=== PATIENT | female | born 1945 | race Caucasian/White ===

== ENCOUNTER 2018-02-05 09:05 | Inpatient (IN) | payer MEDICARE, OTHER, SELFPAY ==
[2018-01-21 09:44] VITALS: BMI 33.5
[2018-02-05] VITALS (14 sets, daily range): BP systolic 117–160; BP diastolic 63–90; PULSE 77–105; RESP 10–19; TEMP 35.8–37.1; O2SAT 18–99; BMI 33.5
--- NOTE | 2018-02-05 | DI.RAD.S_ITS ---
PROCEDURE: XR PELVIS 1-2V INDICATIONS: 72 year-old female with right hip replacement. TECHNIQUE: Intra-operative view of the pelvis and hip acquired. COMPARISON: [facility] [place], CR, XR PELVIS WITH LATERAL HIP RIGHT, 12/16/2017, 11:39. [facility], CR, XR PELVIS WITH LATERAL HIP RIGHT, 09/02/2017, 12:08. FINDINGS: Bones: Intraoperative devices prior to placement of arthroplasty prostheses are in expected positions. No fractures or suspicious bony lesions. Soft tissues: Overlying surgical retractors are present, along with other intraoperative changes. IMPRESSION: Right hip arthroplasty spacer devices are in expected positions intra-operatively. Dictated by: Torrey Gomez M.D. on 02/05/2018 at 13:49 Approved by: Torrey Gomez M.D. on 02/05/2018 at 13:49
--- NOTE | 2018-02-05 | DI.RAD.S_ITS ---
PROCEDURE: XR HIP W PEL IF DONE RT 2V INDICATIONS: 72 year-old female with right hip replacement. TECHNIQUE: AP pelvis and lateral view of the right hip acquired. COMPARISON: [facility], CR, XR PELVIS 1-2V, 02/05/2018, 12:32. [facility], CR, XR PELVIS WITH LATERAL HIP RIGHT, 12/16/2017, 11:39. [facility], CR, XR PELVIS WITH LATERAL HIP RIGHT, 09/02/2017, 12:08. FINDINGS: Bones: Patient is status post noncemented right hip arthroplasty, with hardware components in expected positions. The hip joint appears congruent. The visualized bony structures appear intact. Soft tissues: Overlying postoperative changes are noted, including soft tissue gas and surgical drain. No suspicious soft tissue densities. IMPRESSION: Status post right hip arthroplasty, with hardware components in expected positions. Dictated by: Torrey Gomez M.D. on 02/05/2018 at 14:11 Approved by: Torrey Gomez M.D. on 02/05/2018 at 14:14
[2018-02-05] MEDS: VANCOMYCIN 1,000 MG/200 ML FROZ.PIGGY 200 MG IV (10:15)
[2018-02-05] MEDS: LACTATED RINGERS 1,000 ML 42 ML IV ×2 (10:15→12:18)
--- NOTE | 2018-02-05 11:03 | PM.PREOP ---
Pre-operative Note Interval Note Pre-op Check: History & Physical Reviewed by Physician
[2018-02-05] MEDS: CEFAZOLIN 2 GM/100 ML FROZ.PIGGY IV ×2 (11:17→19:37)
--- NOTE | 2018-02-05 11:22 | P.OP_ITS ---
Operative Date/Time/Diagnoses - Date of procedure: 02/05/18 Time of procedure: 11:14 Post-op diagnosis: same Procedure & Clinicians Procedure: right total hip Same procedure as scheduled: Yes Indications: The patient has had progressively worsening right hip pain with radiographic changes consistent with arthritis. Non-operative management has failed and the patient has requested total hip replacement. The risks, benefits and alternatives to surgery were discussed with the patient prior to proceeding. Risks discussed included, but were not limited to, failure to relieve pain, leg length discrepancy, dislocation, stiffness, infection, nerve damage, deep venous thrombosis, pulmonary embolism, stroke, coma, heart attack, permanent paralysis and , as well as the potential need for eventual revision of the prosthetic. Surgeon: Dolores Patrick Water/Wastewater Project Manager: Vishnu Ramirez Anesthesia Type: General and Spinal Operative Notes Findings: Severe right hip OA Closure Type: primary Specimen(s): none sent Implants & Drains: [employer] Nephew R3 54, anthology 6 standard offset, +0, Applied: drain(s) Estimated Blood Loss (mL): 200 Blood products transfused: none Procedure in detail: The patient was seen in the pre-operative area, where the patient identified the right hip as the operative site and this was marked with my initials. The patient received pre-operative antibiotics and was taken to the operating room and placed on the operative table in the left lateral decubitus position after satisfactory anesthesia. A motion and time study teacher out was performed. The right leg was prepared from the ankle to the iliac crest with ChloroPrep in the usual fashion and draped through sterile drapes. The hip was approached through an approximately 22 cm incision centered over the greater trochanter and curving gently posteriorly as it went proximally. This was carried sharply to the fascia demetrius, which was divided and retracted with a self retaining retractor. The trochanteric bursa was excised with care being taken to avoid the sciatic nerve, which was identified and protected throughout the case. The short external rotators were incised and the capsulomuscular flap was raised and tagged for later repair. The hip was dislocated, and a femoral neck osteotomy performed approximately 15 mm above the lesser trochanter. Retractors were placed to expose the acetabulum. The labrum and central soft tissues were removed, as was the anterior capsule. Reaming was performed initially going up in 2 mm increments, then 1 mm increments until good bite was obtained with an odd sized reamer. The cup 1 mm larger than the last reamer was then inserted using the appropriate anteversion guides. A trial neutral liner was placed. We then turned our attention to the femur. The canal was opened with a box cutting osteotome, followed by a canal finding reamer and a lateralizing reamer. Next sequential broaching was performed. A trial head and neck were then placed and the hip relocated and checked for leg length and stability. The patient was stable in the position of sleep, of squatting, and could be put through a range of motion with 45 degrees internal rotation without dislocation. At 90 degrees flexion, internal rotation to 70 was possible before dislocation. This was felt to be satisfactory and the appropriate components were opened, and the trials were removed. The acetabular liner was impacted into position. The final stem was then impacted into the prepared femoral canal. Finally the femoral head was impacted onto the stem. The acetabulum was cleared of all material and the hip relocated one final time. Radiographs were obtained intra-operatively confirming the position of all components and confirming that there were no iatrogenic fractures. The capsulomuscular flap was then repaired to the greater trochanter though an awl hole using the tag sutures. The short external rotators were repaired with black braided nylon. A deep drain was placed and brought out anteriorly. The fascia demetrius was closed with running and interrupted 0 Vicryl. A subcutaneous drain was also placed. The subcutaneous layer was closed with interrupted 3-0 Vicryl, and the skin with a hi stitches and surgical glue. An Aquacel Ag dressing was applied and the patient was taken to recovery having tolerated the procedure well. Complications: none Condition: stable Disposition: Acute Care Plan for aftercare: The patient will be maintained on a standard total hip replacement protocol with weight bearing as tolerated and posterior hip precautions. The patient will receive Aspirin and sequential compression devices for DVT prophylaxis. The patient will be discharged home when safe for the home environment.
--- NOTE | 2018-02-05 11:58 | SUR.OPER ---
Lateral on padded OR bed. Gel axillary roll. Arms secured on padded armboard with pillow supporting top arm. Padded hip positioner braces x4 - anterior and posterior chest and pelvis. Additional gel pad used anterior pelvis. Gel pad under bottom leg from knee to foot and secured with tape over sheet.
[2018-02-05] MEDS: BUPIVACAINE LIPOSOME 266 MG/20 ML VIAL SUBCUT (11:59)
[2018-02-05] MEDS: BUPIVACAINE 0.25% W/ EPI 50 ML VIAL INJ (12:01)
[2018-02-05] MEDS: EPINEPHRINE IRR (12:02)
[2018-02-05] MEDS: SODIUM CHLORIDE IRR (12:02)
[2018-02-05] MEDS: OXYCODONE IR 5 MG TABLET PO ×2 (16:00→16:49)
[2018-02-05] MEDS: LACTATED RINGERS 1,000 ML 100 ML IV (16:36)
--- NOTE | 2018-02-05 18:26 | PT.IIE ---
Current Diagnoses Unilateral primary osteoarthritis, right hip (02/05/18) Pain in right hip (02/05/18) Surgery Performed Operation Date: 02/05/18 10:45 Actual Procedures p Total Hip Arthroplasty(Right) - Dolores Patrick MD Surgical History (Last Reviewed 02/05/18 @ 18:08 by Kailee Chopra, PT) S/P CABG x 3 (Acute) S/P lateral meniscus repair of left knee (Acute) S/P lateral meniscus repair of right knee (Acute) Medical History (Last Reviewed 02/05/18 @ 18:08 by Kailee Chopra, PT) Breast cancer, left (Acute) Crohns disease (Acute) GERD (gastroesophageal reflux disease) (Acute) HTN (hypertension) (Acute) Hyperlipidemia (Acute) Ovarian tumor (benign) (Acute) Restless leg syndrome (Acute) EMELIA (stress urinary incontinence, female) (Acute) Physical Therapy Inpatient Evaluation/Re-Eval M1 PT/OT-IP Prior Functional Status Start: 02/05/18 18:06 Freq: NEEDED Status: Active Protocol: Document 02/05/18 18:06 DLM (Rec: 02/05/18 18:26 DL [email or web address]) Medical Review Prior Functional Status Medical History Reviewed Yes Diet/Fluid Consistency Regular Communication WNL Mobility and Gait Independent, no device, drives Activities of Daily Living and IADL's Independent Social History Household Members significant other Living Arrangements House Number of Floors (Floors) One Floor Number of Stairs To Enter/Railing? 1 and ramp Home Environment Ramp Bidet Home Equipment Front Wheel Walker Raised Toilet Seat w/Armrests Shower Seat with Backrest Additional Social History Comment adjustable bed M2 PT-IP Current Condition Start: 02/05/18 18:06 Freq: NEEDED Status: Active Protocol: Document 02/05/18 18:06 DLM (Rec: 02/05/18 18:26 DL [email or web address]) Physical Therapy Current Condition Current Condition Evaluation Date 02/05/18 Treatment Diagnosis right GLORIA, impaired gait Onset Date surgery 02/05/18 Precautions Posterior Hip Precautions No Hip Flexion > 90 degrees No Hip Internal Rotation No Hip Adduction Other Precautions hx breast cancer on left side, VANESSA drain, hemovac Weight Bearing Status Weight Bearing Status Weight Bear as Tolerated M3 PT-IP Subjective Start: 02/05/18 18:06 Freq: NEEDED Status: Active Protocol: Document 02/05/18 18:06 DLM (Rec: 02/05/18 18:26 DLM [email or web address]) Subjective Physical Therapy Visit Type Type Initial Evaluation Visit Start Time 17:08 Visit Stop Time 18:06 Total Visit Minutes 58 Physical Therapy Visit Comments Patient Comments She normally goes into bed on her knee, she has questions about how she get into the car , she attended out-pt PT before surgery Patient/Caregiver Goals She hopes to go home tomorrow Therapy Pain Assessment Pain When Pain Assessed During Mobility Pain Present Pain Present Pain Reported Location RIght Hip Intensity 4 Scale Used Numeric (1 - 10) Description Aching Pain Management Techniques Re-positioning Timing of Activity with Medications M4 PT-IP Mobility and Gait Start: 02/05/18 18:06 Freq: NEEDED Status: Active Protocol: Document 02/05/18 18:06 DLM (Rec: 02/05/18 18:26 DL [email or web address]) PT-Bed Mobility Assessment Supine to Sit Supine to Sit Contact Guard Assistance Minimal Assistance Sit to Supine Sit to Supine Minimal Assistance Scooting Scooting to Edge of Bed Standby Assistance Scooting Up and Down in Bed Standby Assistance PT-Transfer Assessment Sit to and From Stand Sit to and from Stand Minimal Assistance Equipment Transfer Assistive Device Gait Belt Front Wheeled Walker Orthotic/Prosthetic Devices or Brace: No Transfers Transfer Destination Bedside Commode Transfer Technique Stand Step Pivot Transfer Ability Level of Assist Contact Guard Assistance Minimal Assistance Use of Upper Extremities Comments Mobility Comments needs verbal cues on how to use her post hip precautions functionally, no light- headedness Gait Assessment Gait Gait Assistance Required: Contact Guard Assist Distance (Feet) (feet) 25 Able to Maintain Weight Bearing Status Yes During Gait Assistive Devices Assistive Device Gait Belt Front Wheeled Walker Factors Limiting Gait Function Factors Limiting Gait Function Decreased Activity Tolerance Decreased Strength Pain PT-Balance Assessment Sitting Balance and Reactions Static Sitting Balance Ability Good Dynamic Sitting Balance Ability Good Standing Balance and Reactions Static Standing Balance Ability Good Dynamic Standing Balance Ability Fair Device Used FWW M5 PT-IP Objective Assessments Start: 02/05/18 18:06 Freq: NEEDED Status: Active Protocol: Document 02/05/18 18:06 DLM (Rec: 02/05/18 18:26 DLM [email or web address]) Orientation Orientation/Cognition Level of Alertness Alert Orientation Name Age Birthday Month Date Year Day of Week Place Situation Language Function Ability No Deficits Noted Safety Awareness Understands Safety Issues Memory Description No Deficits Noted Comments she needs reminders how to use her hip precautions functionally Gross Range of Motion Upper Extremity ROM Assessment Within Functional Limits Lower Extremity ROM Assessment Right Impaired Impairments pain with heel slide motion limits ROM, knee and ankle functional in sitting, pt also limited in right hip due to post-op precautions Strength Upper Extremity Strength Assessment Within Functional Limits Lower Extremity Strength Assessment Left Impaired Hip needs assist to move right LE in bed Knee knee ext 3+/5 with pain Ankle DF 5/5 Coordination Assessment Gross Coordination Gross Coordination WNL Sensation Assessment Sensation Gross Sensation WNL Comments Sensation Comments no changes reported post-op Muscle Tone Muscle Tone WNL Yes M6 PT-IP Treatment Start: 02/05/18 18:06 Freq: NEEDED Status: Active Protocol: Document 02/05/18 18:06 DLM (Rec: 02/05/18 18:26 DLM [email or web address]) Physical Therapy Treatment Exercises Exercises Ankle Pumps Gluteal Sets Quad Sets Heel Slides Supine Hip Abduction Education Education Provided Precautions Weight Bearing Status Post-Op Packet Safety Other Treatments Other Treatment Performed asked her questions about home safety, equipment, using her hip precautions. Posted her hip precautions in her room M7 PT-IP Assessment and Plan Start: 02/05/18 18:06 Freq: NEEDED Status: Active Protocol: Document 02/05/18 18:06 DLM (Rec: 02/05/18 18:26 DLM [email or web address]) PT Summary Assessment and Plan Potential Rehabilitation Potential Excellent Status of Condition at Evaluation Evolving Summary Impairments Pain ROM Strength Balance Bed Mobility Transfers Gait Activity Tolerance Assessment Summary She tolerated activity well this visit on day of surgery. She ambulated short distance in her room and urinated on bedside commode. She declined to sit up in recliner due to fatigue. She returned to bed to rest. She is motivated to return home and has a supportive S.O. to assist her. Goals Bed Mobility Goal Independent Transfer Goal Independent Front Wheeled Walker Gait Goal Independent Front Wheel Walker Gait Distance 150 feet Other Goals up and down one step with fWW and SBA Days to Meet Goals 3 Frequency of Treatment Frequency Of Treatment Twice a Day Treatment Plan Physical Therapy Treatment Plan Bed Mobility Training Transfer Training Gait Training Therapeutic Exercise Balance Retraining Post Op Education Discharge Planning Hot or Cold Pack Neuromuscular Re-ed Other Recommendations and Next Treatment continue education on hip Focus precautions, advance distance of gait Recommendations To Nursing Amount of Assist Needed 1 Person Assist Discharge Recommendations PT Discharge Recommendations Home with Assistance Provider Visit Care Team Role Provider Type Dolores Patrick MD Admit Provider Physician Attending Provider Specialty: Orthopedic Surgery
[2018-02-05] MEDS: OXYCODONE IR 10 MG TABLET PO (21:23)
[2018-02-05] MEDS: ACETAMINOPHEN 325 MG TABLET 650 MG PO (21:24)
[2018-02-05] MEDS: diphenhydrAMINE 25 MG TABLET PO (21:24)
[2018-02-05] MEDS: ASPIRIN EC 81 MG TABLET PO (21:25)
[2018-02-05] MEDS: METOPROLOL 12.5 MG TABLET PO (21:25)
[2018-02-05] MEDS: ATORVASTATIN 20 MG TABLET PO (21:25)
[2018-02-06] MEDS: OXYCODONE IR 10 MG TABLET PO ×2 (00:44→05:11)
[2018-02-06] MEDS: CEFAZOLIN 2 GM/100 ML FROZ.PIGGY IV (02:49)
[2018-02-06 05:16] LABS: Hematocrit 34.5 % (36-46); Hemoglobin 11.8 g/dL (12.0-16.0)
[2018-02-06 07:30] VITALS: BP 152/67; PULSE 88; RESP 16; TEMP 37.4; O2SAT 95
--- NOTE | 2018-02-06 08:28 | PM.DS.1 ---
History of Present Illness Date Patient Seen: 02/06/18 Time Patient Seen: 08:30 Chief complaint: rt total hip arthroplasty [id number] Narrative: Pt is a 72yo female with a history of right hip OA. She tried conservative measures which did not alleviate her pain and she elected to proceed with a RT GLORIA with Dr. Patrick at on 02/05/18. Discharge Providers Date of admission: 02/05/18 09:05 Consults: 02/05/18 06:00 Consult to Discharge Planning Routine Comment: post operative joint surgery 02/05/18 15:49 Consult to Discharge Planning Routine Comment: Consult to Physical Therapy Evaluate & Treat Comment: Physician Instructions: post op GLORIA protocol Discharge provider: Stacie Moe PA-C Summary Discharge Diagnosis: Rt Hip OA Hospital Course: Pt was admitted and taken to the OR where she had a RT GLORIA with Dr. Patrick. She recovered well and was transferred to the floor for further care. PD 1, pain was under control, able to urinate w/o issues, eating and drinkin well and was ready for D/C home if cleared by PT. Pt will be D/C home with rx for oxycodone 5mg for pain. Patient to f/u next week in office. PT to be done at [facility] in [place]. Status at Discharge Cognitive/behavioral status at discharge: Alert and oriented x3 Functional status at discharge: uses cane/walker Overall status at discharge: patient is progressing back to baseline Time Spent with Patient Less than 30 minutes Exam Vital Signs (past 8 hours): Pulse Oximetry 99 Fraction of Inspired Oxygen 21 Oxygen Delivery Method Room Air Oxygen Flow Rate 0 Narrative Exam Narrative: Pt in bed. A&Ox3. Comfortable. Rt hip dressing CDI. Hemovac drain in <50cc. Mod swelling in rt thigh. NV status intact. Daniel calves soft and nontender. Objective Labs Result Diagrams: 02/06/18 05:03 Labs: Laboratory Results - last 24 hr 02/06/18 05:03 Hgb 11.8 L Hct 34.5 L Discharge Plan Discharge Plan Patient Disposition: Home, Self-Care Discharge comment: D/C this afternoon if cleared by PT. Start PT. Contact [facility] to arrange appointments. Discharge Med Rec/Prescriptions Prescriptions: New acetaminophen 325 mg Tablet 650 mg PO Q6HR PRN (Reason: Pain, Mild) Qty: 60 RF: 0 aspirin 81 mg Tablet,Delayed Release (Dr/Ec) 81 mg PO BID Qty: 90 RF: 0 oxycodone 5 mg Tablet 10 mg PO Q4HR PRN (Reason: Pain, Moderate) 42 Days Qty: 60 RF: 0 Continue atorvastatin [Lipitor] 20 mg Tablet 20 mg PO BEDTIME RF: 0 loperamide 2 mg Capsule 2 mg PO BEDTIME RF: 0 ibuprofen [Motrin IB] 200 mg Tablet 400 mg PO BID RF: 0 omeprazole 20 mg Capsule,Delayed Release(Dr/Ec) 20 mg PO QAM RF: 0 doxylamine succinate [Sleep Aid (doxylamine)] 25 mg Tablet 25 mg PO BEDTIME PRN (Reason: Sleep) RF: 0 metoprolol tartrate 25 mg Tablet 12.5 mg PO BID RF: 0 hydrochlorothiazide 12.5 mg Tablet 12.5 mg PO DAILY RF: 0 Discontinued aspirin 81 mg Tablet,Delayed Release (Dr/Ec) 81 mg PO BEDTIME RF: 0 Follow up/Referrals: Dolores Patrick MD [Physician] - (F/U at schedule appointment on 02/10/18 at the [facility] Provider Discharge Instructions Diet: Diet as Tolerated Activity: as tolerated. Home exercises. Start PT next week. Call [facility] to make appointment. Cold/Heat Therapy: Apply ice to rt hip as needed for pain and swelling. Wound Care Report to your healthcare provider any signs of infection, such as:: chills, fever, night sweats and increased pain Dressing: May shower. Leave dressing in place. Visit Report/Discharge Packet Instructions: DI for Hip Replacement Discharge Data Attending Provider: Dolores Patrick Admit Date/Time: 02/05/18 09:05 Quality VTE Deep Vein Thrombosis/Pulmonary Embolism Present on Admission: No
--- NOTE | 2018-02-06 08:38 | P.DS_ITS ---
History of Present Illness Date Patient Seen: 02/06/18 Time Patient Seen: 08:30 Chief complaint: rt total hip arthroplasty [id number] Narrative: Pt is a 72yo female with a history of right hip OA. She tried conservative measures which did not alleviate her pain and she elected to proceed with a RT GLORIA with Dr. Patrick at on 02/05/18. Discharge Providers Date of admission: 02/05/18 09:05 Consults: 02/05/18 06:00 Consult to Discharge Planning Routine Comment: post operative joint surgery 02/05/18 15:49 Consult to Discharge Planning Routine Comment: Consult to Physical Therapy Evaluate & Treat Comment: Physician Instructions: post op GLORIA protocol Discharge provider: Stacie Moe PA-C Summary Discharge Diagnosis: Rt Hip OA Hospital Course: Pt was admitted and taken to the OR where she had a RT GLORIA with Dr. Patrick. She recovered well and was transferred to the floor for further care. PD 1, pain was under control, able to urinate w/o issues, eating and drinkin well and was ready for D/C home if cleared by PT. Pt will be D/C home with rx for oxycodone 5mg for pain. Patient to f/u next week in office. PT to be done at [facility] in [place]. Status at Discharge Cognitive/behavioral status at discharge: Alert and oriented x3 Functional status at discharge: uses cane/walker Overall status at discharge: patient is progressing back to baseline Time Spent with Patient Less than 30 minutes Exam Vital Signs (past 8 hours): Pulse Oximetry 99 Fraction of Inspired Oxygen 21 Oxygen Delivery Method Room Air Oxygen Flow Rate 0 Narrative Exam Narrative: Pt in bed. A&Ox3. Comfortable. Rt hip dressing CDI. Hemovac drain in <50cc. Mod swelling in rt thigh. NV status intact. Daniel calves soft and nontender. Objective Labs Result Diagrams: 02/06/18 05:03 Labs: Laboratory Results - last 24 hr 02/06/18 05:03 Hgb 11.8 L Hct 34.5 L Discharge Plan Discharge Plan Patient Disposition: Home, Self-Care Discharge comment: D/C this afternoon if cleared by PT. Start PT. Contact [facility] to arrange appointments. Discharge Med Rec/Prescriptions Prescriptions: New acetaminophen 325 mg Tablet 650 mg PO Q6HR PRN (Reason: Pain, Mild) Qty: 60 RF: 0 aspirin 81 mg Tablet,Delayed Release (Dr/Ec) 81 mg PO BID Qty: 90 RF: 0 oxycodone 5 mg Tablet 10 mg PO Q4HR PRN (Reason: Pain, Moderate) 42 Days Qty: 60 RF: 0 Continue atorvastatin [Lipitor] 20 mg Tablet 20 mg PO BEDTIME RF: 0 loperamide 2 mg Capsule 2 mg PO BEDTIME RF: 0 ibuprofen [Motrin IB] 200 mg Tablet 400 mg PO BID RF: 0 omeprazole 20 mg Capsule,Delayed Release(Dr/Ec) 20 mg PO QAM RF: 0 doxylamine succinate [Sleep Aid (doxylamine)] 25 mg Tablet 25 mg PO BEDTIME PRN (Reason: Sleep) RF: 0 metoprolol tartrate 25 mg Tablet 12.5 mg PO BID RF: 0 hydrochlorothiazide 12.5 mg Tablet 12.5 mg PO DAILY RF: 0 Discontinued aspirin 81 mg Tablet,Delayed Release (Dr/Ec) 81 mg PO BEDTIME RF: 0 Follow up/Referrals: Dolores Patrick MD [Physician] - (F/U at schedule appointment on 02/10/18 at the [facility].) Provider Discharge Instructions Diet: Diet as Tolerated Activity: as tolerated. Home exercises. Start PT next week. Call [facility] to make appointment. Cold/Heat Therapy: Apply ice to rt hip as needed for pain and swelling. Wound Care Report to your healthcare provider any signs of infection, such as:: chills, fever, night sweats and increased pain Dressing: May shower. Leave dressing in place. Visit Report/Discharge Packet Instructions: DI for Hip Replacement Discharge Data Attending Provider: Dolores Patrick Admit Date/Time: 02/05/18 09:05 Quality VTE Deep Vein Thrombosis/Pulmonary Embolism Present on Admission: No
[2018-02-06] MEDS: METOPROLOL 12.5 MG TABLET PO (09:05)
[2018-02-06] MEDS: PANTOPRAZOLE 20 MG TABLET PO (09:05)
[2018-02-06] MEDS: ASPIRIN EC 81 MG TABLET PO (09:05)
[2018-02-06] MEDS: hydroCHLOROthiazide 12.5 MG CAPSULE PO (09:05)
[2018-02-06] MEDS: OXYCODONE IR 5 MG TABLET PO (09:14)
--- NOTE | 2018-02-06 10:45 | PT.IPTN ---
Current Diagnoses Unilateral primary osteoarthritis, right hip (02/05/18) Pain in right hip (02/05/18) Surgery Performed Operation Date: 02/05/18 10:45 Actual Procedures p Total Hip Arthroplasty(Right) - Dolores Patrick MD Physical Therapy Treatment Note M2 PT-IP Current Condition Start: 02/05/18 18:06 Freq: NEEDED Status: Active Protocol: Document 02/05/18 18:06 DLM (Rec: 02/05/18 18:26 DLM [id number]) Physical Therapy Current Condition Current Condition Evaluation Date 02/05/18 Treatment Diagnosis right GLORIA, impaired gait Onset Date surgery 02/05/18 Precautions Posterior Hip Precautions No Hip Flexion > 90 degrees No Hip Internal Rotation No Hip Adduction Other Precautions hx breast cancer on left side, VANESSA drain, hemovac Weight Bearing Status Weight Bearing Status Weight Bear as Tolerated M3 PT-IP Subjective Start: 02/05/18 18:06 Freq: NEEDED Status: Active Protocol: Document 02/06/18 10:35 GGD (Rec: 02/06/18 10:45 GGD [id number]) Subjective Physical Therapy Visit Type Type Treatment Note Visit Start Time 10:00 Visit Stop Time 10:35 Total Visit Minutes 35 Number of GUEST RELATIONS MANAGER Visits 1 Physical Therapy Visit Comments Patient Comments Pt states she is ready to go home. Therapy Pain Assessment Pain When Pain Assessed At Rest Pain Present Pain Present Pain Reported Location RIght Hip Intensity 2 Scale Used Numeric (1 - 10) Description Aching Pain Management Techniques Re-positioning Timing of Activity with Medications M4 PT-IP Mobility and Gait Start: 02/05/18 18:06 Freq: NEEDED Status: Active Protocol: Document 02/06/18 10:35 GGD (Rec: 02/06/18 10:45 GGD [id number]) PT-Bed Mobility Assessment Supine to Sit Supine to Sit Standby Assistance Sit to Supine Sit to Supine Minimal Assistance Scooting Scooting to Edge of Bed Independent Scooting Up and Down in Bed Independent PT-Transfer Assessment Sit to and From Stand Sit to and from Stand Standby Assistance Use of Upper Extremities Equipment Transfer Assistive Device Front Wheeled Walker Transfers Transfer Destination Chair Transfer Technique gait Transfer Ability Level of Assist Contact Guard Assistance Use of Upper Extremities Comments Mobility Comments Pt need verbal cueing for hip precautions Gait Assessment Gait Gait Assistance Required: Contact Guard Assist Distance (Feet) (feet) 150 Assistive Devices Assistive Device Gait Belt Front Wheeled Walker Gait Deviations General Gait Pattern Step-to Gait Factors Limiting Gait Function Factors Limiting Gait Function Decreased Activity Tolerance Decreased Strength Pain Comments Gait Comments PT need cues for hip precautions with turns. M5 PT-IP Objective Assessments Start: 02/05/18 18:06 Freq: NEEDED Status: Active Protocol: Document 02/05/18 18:06 DLM (Rec: 02/05/18 18:26 DLM [id number]) Orientation Orientation/Cognition Level of Alertness Alert Orientation Name Age Birthday Month Date Year Day of Week Place Situation Language Function Ability No Deficits Noted Safety Awareness Understands Safety Issues Memory Description No Deficits Noted Comments she needs reminders how to use her hip precautions functionally Gross Range of Motion Upper Extremity ROM Assessment Within Functional Limits Lower Extremity ROM Assessment Right Impaired Impairments pain with heel slide motion limits ROM, knee and ankle functional in sitting, pt also limited in right hip due to post-op precautions Strength Upper Extremity Strength Assessment Within Functional Limits Lower Extremity Strength Assessment Left Impaired Hip needs assist to move right LE in bed Knee knee ext 3+/5 with pain Ankle DF 5/5 Coordination Assessment Gross Coordination Gross Coordination WNL Sensation Assessment Sensation Gross Sensation WNL Comments Sensation Comments no changes reported post-op Muscle Tone Muscle Tone WNL Yes M6 PT-IP Treatment Start: 02/05/18 18:06 Freq: NEEDED Status: Active Protocol: Document 02/06/18 10:35 GGD (Rec: 02/06/18 10:45 GGAnne [id number]) Physical Therapy Treatment Exercises Exercises Ankle Pumps Gluteal Sets Quad Sets Education Education Provided Precautions Post-Op Packet Safety M7 PT-IP Assessment and Plan Start: 02/05/18 18:06 Freq: NEEDED Status: Active Protocol: Document 02/06/18 10:35 GGD (Rec: 02/06/18 10:45 GGD [id number]) PT Summary Assessment and Plan Summary Assessment Summary Pt improving with mobility. She need cues for hip precucation, but decrease cueing with treatment. Frequency of Treatment Frequency Of Treatment Twice a Day Treatment Plan Other Recommendations and Next Treatment continue education on hip Focus precautions, advance distance of gait Recommendations To Nursing Amount of Assist Needed 1 Person Assist Discharge Recommendations PT Discharge Recommendations Home with Assistance Outpatient PT
--- NOTE | 2018-02-06 11:15 | PC.NURSE ---
Pt worked with P.T. and feels ready to go home with [facility]. Pt denies pain, nausea, or shortness of breath. Steady on her feet with FWW and SBA. Reviewed discharge instructions and meds. Pt states she has no further questions and is ready to be taken out when [facility] returns from picking up her prescription.
== END 2018-02-06 12:05 | disposition home or self-care (01) | DRG 470 ==
PROVIDERS: Admitting Provider Orthopaedic Surgery; Visit Provider Orthopaedic Surgery
PROC: 0SR90JZ Replacement of Right Hip Joint with Synthetic Substitute, Open Approach (ICD-10-PCS; CPT 27130; principal; 2018-02-05 10:45)
DX: M16.11 Unilateral primary osteoarthritis, right hip (principal); Z95.1 Presence of aortocoronary bypass graft; I10 Essential (primary) hypertension; M85.80 Other specified disorders of bone density and structure, unspecified site; E78.5 Hyperlipidemia, unspecified; K21.9 Gastro-esophageal reflux disease without esophagitis; I25.10 Atherosclerotic heart disease of native coronary artery without angina pectoris; N18.9 Chronic kidney disease, unspecified; Z87.891 Personal history of nicotine dependence
CPT/HCPCS: 36415; 72170; 73502; 85014; 85018; 94760; 97110; 97116; 97162; 97530; C1776; C9290; J0131; J0171; J0690; J1100; J2250; J2405; J2704; J3010; J3370